=== PATIENT | male | born 1950 | race Two or more races ===

== ENCOUNTER → 2024-01-12 | Outpatient (BNVA) | payer OTHER, MEDICAID, SELFPAY | END | disposition home or self-care (01) | PROVIDERS: PCP Nurse Practitioner Family; Referring Provider Nurse Practitioner Family; Visit Provider Urology | DX: Z76.89 Persons encountering health services in other specified circumstances (principal) | CPT/HCPCS: 81003; 99212; G0463 ==

== ENCOUNTER → 2024-04-11 | Outpatient (CLI) | payer OTHER, MEDICAID, SELFPAY ==
--- NOTE | 2024-04-11 | XR_ITS ---
Examination: Bilateral hands, 6 views. Technique: AP, Oblique, Lateral each hand total 6 views Date and time of exam: April 11, 2024 1342 hours INDICATIONS: Bilateral hand pain one year, history hand surgery one year ago Findings: Moderate osteopenia Bilateral mild osteoarthritis interphalangeal joints and metacarpophalangeal joints No erosive arthritis No fractures Soft tissue vascular calcification IMPRESSION: Osteoarthritis as above
--- NOTE | 2024-04-11 | XR_ITS ---
Exam: elbow bilateral, 6 views Technique: Elbow AP, oblique lateral each elbow total 6 views Exam date and time: April 11, 2024 1342 hours INDICATIONS: Bilateral elbow pain beginning one month ago FINDINGS: No fracture or dislocation involving either elbow Mild bilateral elbow osteoarthritis 4 mm left posterior bony olecranon spur IMPRESSION: Mild bilateral elbow osteoarthritis.
== END | disposition home or self-care (01) ==
LOC: CDIM 12:10
PROVIDERS: PCP Nurse Practitioner Family; Referring Provider Nurse Practitioner Gerontology; Visit Provider Nurse Practitioner Gerontology
DX: M19.022 Primary osteoarthritis, left elbow (principal); M19.021 Primary osteoarthritis, right elbow; M19.042 Primary osteoarthritis, left hand; M19.041 Primary osteoarthritis, right hand
CPT/HCPCS: 73080; 73130

== ENCOUNTER → 2024-05-29 | Outpatient (CLI) | payer OTHER, MEDICAID, SELFPAY ==
[2024-05-29 14:48] LABS: Prostate Specific Antigen 0.27 ng/mL (0-4.00)
== END | disposition home or self-care (01) ==
LOC: COPL 09:27
PROVIDERS: PCP Nurse Practitioner Family; Referring Provider Physician Assistant; Visit Provider Physician Assistant
DX: R97.20 Elevated prostate specific antigen [PSA] (principal)
CPT/HCPCS: 36415; 84153

== ENCOUNTER → 2024-06-24 | Outpatient (CLI) | payer OTHER, MEDICAID, SELFPAY ==
[2024-06-24 10:03] LABS: Collection Type, Urine Clean Catch
[2024-06-24 10:29] LABS: Basophils % (Auto) 1 % (0-2.5); Eosinophils # (Auto) 0.1 Thou/mm3 (0.0-0.5); Eosinophils % (Auto) 2 % (0-10); Hematocrit 42.3 % (41.0-53.0); Hemoglobin 13.9 g/dL (13.5-16.0); Immature Granulocytes % (Auto) 1 % (0-0); Immature Granulocytes Auto 0.02 Thou/mm3 (0.00-0.00); Lymphocytes % (Auto) 24 % (10-50); Mean Corpuscular HGB Conc 32.9 g/dl (31.0-37.0); Mean Corpuscular Hemoglobin 28.9 pg (25.0-35.0); Mean Corpuscular Volume 88 fL (80-100); Monocytes # (Auto) 0.3 Thou/mm3 (0.0-0.8); Monocytes % (Auto) 6 % (0-12); Neutrophils % (Auto) 67 % (37-80); Nucleated Red Blood Cell % 0 /100 WBC (0); Platelet Count 154 Thou/mm3 (140-440); RDW Standard Deviation 41.4 fL (35.1-43.9); Red Blood Count 4.81 Miln/mm3 (4.50-5.90); White Blood Count 4.4 Thou/mm3 (3.8-10.6)
[2024-06-24 10:33] LABS: Bilirubin,Urine Negative (Negative); Blood,Urine Negative (Negative); Clarity,Urine Clear (Clear/Hazy); Color,Urine Lt-Yellow (Lt Yel-Yel); Glucose, Urine Negative (Negative); Ketones,Urine Negative (Negative); Leukocyte Esterase,Urine Negative (Negative); Nitrite,Urine Negative (Negative); Protein,Urine Negative (Neg - Trace); RBC,Urine 2 /hpf (0-3); Specific Gravity,Urine 1.016 (1.001-1.035); Squamous Epithelial Cell,Urine < 1 /hpf (0-5); Urobilinogen,Urine Negative mg/dL (0.0-1.0); WBC,Urine < 1 /hpf (0-5)
[2024-06-24 10:36] LABS: Creatinine MALB Rnd Ur 86 mg/dL (30-125); Microalbumin Creat Ratio 5 mg/gCrea (<30); Microalbumin, Random Urine 4 mg/L (0-300)
[2024-06-24 11:05] LABS: Alanine Aminotransferase 29 U/L (10-49); Albumin, Serum 4.2 gm/dL (3.4-4.8); Albumin/Globulin Ratio 1.8 (1.2-2.2); Alkaline Phosphatase 76 U/L (46-116); Anion Gap 6 (7-16); Aspartate Amino Transferase 31 U/L (0-34); BUN/Creatinine Ratio 16 Ratio (12-20); Bilirubin,Total 0.6 mg/dL (0.3-1.2); Blood Urea Nitrogen 16 mg/dL (9-23); Calcium 9.3 mg/dL (8.3-10.6); Calcium (Corrected) 9.3 mg/dL (8.5-10.1); Cardiac Risk Estimate 2.2 RATIO (4.0-6.7); Chloride 108 mMol/L (98-107); Cholesterol 127 mg/dL (132-200); Free T4 (Free Thyroxine) 0.95 ng/dL (0.89-1.76); Globulin 2.3 gm/dL (2.3-3.5); Glucose 79 mg/dL (74-106); HDL Cholesterol 58 mg/dL (40-60); LDL Cholesterol,Calculated 48 mg/dL (0-130); Osmolality,Calculated 285 (275-295); Potassium 4.8 mMol/L (3.4-5.1); Sodium 143 mMol/L (136-145); Total Protein 6.5 gm/dL (5.7-8.2); Triglycerides 105 mg/dL (30-150); eGFR > 60 See Note
[2024-06-24 11:08] LABS: Vitamin D 25 Hydroxy Total 43.2 ng/mL (7.3-40.2)
[2024-06-24 11:56] LABS: Glucose Estimated Average 212 mg/dL (80-131)
== END | disposition home or self-care (01) ==
LOC: COPL 09:21
DX: E11.65 Type 2 diabetes mellitus with hyperglycemia (principal); E78.2 Mixed hyperlipidemia; I10 Essential (primary) hypertension
CPT/HCPCS: 36415; 80053; 80061; 81001; 82043; 82306; 82570; 83036; 84439; 84443; 85025

== ENCOUNTER → 2024-07-09 | Outpatient (BNVA) | payer OTHER, MEDICAID, SELFPAY | END | disposition home or self-care (01) | PROVIDERS: PCP Nurse Practitioner Family; Referring Provider Nurse Practitioner Family; Visit Provider Urology | DX: C61 Malignant neoplasm of prostate (principal); E11.9 Type 2 diabetes mellitus without complications; I10 Essential (primary) hypertension; E66.9 Obesity, unspecified; Z68.31 Body mass index [BMI] 31.0-31.9, adult; E78.00 Pure hypercholesterolemia, unspecified | CPT/HCPCS: 81003; 99211; 99212; G0463 ==

== ENCOUNTER → 2024-10-02 | Outpatient (CLI) | payer OTHER, MEDICAID, SELFPAY ==
--- NOTE | 2024-10-02 10:27 | XR_ITS ---
Examination: Forearm, right, 2 views. Technique: Forearm, AP, lateral 2 views Date and time of exam: October 02, 2024 1045 hours INDICATIONS: Foreign pain beginning 2 years ago FINDINGS: Moderate narrowing radiocarpal joint Soft tissue vascular calcification Mild diffuse elbow osteoarthritis No fracture IMPRESSION: Osteoarthritis as above
--- NOTE | 2024-10-02 10:27 | XR_ITS ---
Examination: Wrist, right 3 views Technique: Wrist AP, oblique, lateral 3 views Date and time of exam: 06/04/2024 1045 hours INDICATIONS: Right wrist pain beginning 2 years ago. FINDINGS: Moderate osteoarthritis radiocarpal, navicular trapezium, first carpometacarpal joints No fractures Soft tissue vascular calcification IMPRESSION: Osteoarthritis as above
--- NOTE | 2024-10-02 10:27 | XR_ITS ---
Examination: Hand, right 3 views Technique: Hand AP, oblique, lateral 3 views Date and time of exam: October 02, 2024 1045 hours INDICATIONS: Right hand pain beginning 2 years ago FINDINGS: Moderate osteoarthritis radiocarpal, navicular trapezium, first carpometacarpal joints Mild to moderate osteoarthritis distal interphalangeal joints No fractures No erosive arthritis IMPRESSION: Osteoarthritis as above
== END | disposition home or self-care (01) ==
PROVIDERS: Referring Provider Nurse Practitioner Gerontology; Visit Provider Nurse Practitioner Gerontology
DX: M19.021 Primary osteoarthritis, right elbow (principal); M15.1 Heberden's nodes (with arthropathy)
CPT/HCPCS: 73090; 73110; 73130

== ENCOUNTER → 2024-10-28 | Outpatient (CLI) | payer OTHER, MEDICAID, SELFPAY ==
[2024-10-28 10:06] LABS: Collection Type, Urine Clean Catch
[2024-10-28 10:28] LABS: Basophils # (Auto) 0.0 Thou/mm3 (0.0-0.2); Basophils % (Auto) 1 % (0-2.5); Eosinophils # (Auto) 0.1 Thou/mm3 (0.0-0.5); Eosinophils % (Auto) 2 % (0-10); Hematocrit 43.4 % (41.0-53.0); Hemoglobin 14.5 g/dL (13.5-16.0); Immature Granulocytes Auto 0.01 Thou/mm3 (0.00-0.00); Lymphocytes # (Auto) 1.5 Thou/mm3 (1.0-4.8); Lymphocytes % (Auto) 27 % (10-50); Mean Corpuscular HGB Conc 33.4 g/dl (31.0-37.0); Mean Corpuscular Hemoglobin 29.2 pg (25.0-35.0); Mean Corpuscular Volume 87 fL (80-100); Monocytes # (Auto) 0.5 Thou/mm3 (0.0-0.8); Monocytes % (Auto) 9 % (0-12); Neutrophils # (Auto) 3.6 Thou/mm3 (1.8-7.7); Neutrophils % (Auto) 62 % (37-80); Nucleated Red Blood Cell # 0.00 Thou/mm3 (0.00-0.00); Nucleated Red Blood Cell % 0 /100 WBC (0); Platelet Count 188 Thou/mm3 (140-440); RDW Standard Deviation 40.4 fL (35.1-43.9); Red Blood Count 4.97 Miln/mm3 (4.50-5.90); White Blood Count 5.8 Thou/mm3 (3.8-10.6)
[2024-10-28 10:30] LABS: Bilirubin,Urine Negative (Negative); Blood,Urine Negative (Negative); Clarity,Urine Clear (Clear/Hazy); Color,Urine Yellow (Lt Yel-Yel); Glucose, Urine Negative (Negative); Ketones,Urine Negative (Negative); Leukocyte Esterase,Urine Negative (Negative); Nitrite,Urine Negative (Negative); PH,Urine 6.0 (5.0-7.0); Protein,Urine Negative (Neg - Trace); RBC,Urine 5 /hpf (0-3); Specific Gravity,Urine 1.024 (1.001-1.035); Squamous Epithelial Cell,Urine < 1 /hpf (0-5); Urobilinogen,Urine Negative mg/dL (0.0-1.0); WBC,Urine 1 /hpf (0-5)
[2024-10-28 10:51] LABS: Alanine Aminotransferase 33 U/L (10-49); Albumin, Serum 4.6 gm/dL (3.4-4.8); Albumin/Globulin Ratio 1.6 (1.2-2.2); Alkaline Phosphatase 93 U/L (46-116); Anion Gap 9 (7-16); Aspartate Amino Transferase 30 U/L (0-34); BUN/Creatinine Ratio 18 Ratio (12-20); Bilirubin,Total 0.9 mg/dL (0.3-1.2); Blood Urea Nitrogen 20 mg/dL (9-23); Calcium 9.7 mg/dL (8.3-10.6); Calcium (Corrected) 9.7 mg/dL (8.5-10.1); Carbon Dioxide 30.0 mMol/L (20.0-31.0); Cardiac Risk Estimate 2.2 RATIO (4.0-6.7); Chloride 106 mMol/L (98-107); Cholesterol 117 mg/dL (132-200); Creatinine (Component) 1.1 mg/dL (0.6-1.3); Free T4 (Free Thyroxine) 1.16 ng/dL (0.89-1.76); Globulin 2.8 gm/dL (2.3-3.5); Glucose 77 mg/dL (74-106); HDL Cholesterol 54 mg/dL (40-60); LDL Cholesterol,Calculated 50 mg/dL (0-130); Osmolality,Calculated 290 (275-295); Potassium 4.3 mMol/L (3.4-5.1); Sodium 145 mMol/L (136-145); Thyroid Stimulating Hormone 2.89 uIU/mL (0.55-4.78); Total Protein 7.4 gm/dL (5.7-8.2); Triglycerides 65 mg/dL (30-150); eGFR > 60 See Note
[2024-10-28 10:53] LABS: Creatinine MALB Rnd Ur 130 mg/dL (30-125); Microalbumin Creat Ratio 2 mg/gCrea (<30); Microalbumin, Random Urine 3 mg/L (0-300)
[2024-10-28 11:17] LABS: Glucose Estimated Average 212 mg/dL (80-131); Hemoglobin A1C 9.0 % Hgb (4.8-6.0)
== END | disposition home or self-care (01) ==
DX: E11.65 Type 2 diabetes mellitus with hyperglycemia (principal); I10 Essential (primary) hypertension; E78.2 Mixed hyperlipidemia
CPT/HCPCS: 36415; 80053; 80061; 81001; 82043; 82570; 83036; 84439; 84443; 85025

== ENCOUNTER → 2024-10-31 | Outpatient (CLI) | payer OTHER, MEDICAID, SELFPAY ==
[2024-10-31 14:39] LABS: Urea Breath Test Negative (Negative)
== END | disposition home or self-care (01) ==
LOC: COPL 13:18
DX: R63.0 Anorexia (principal)
CPT/HCPCS: 83013; 83014

== ENCOUNTER → 2024-11-01 | Outpatient (CLI) | payer OTHER, MEDICAID, SELFPAY ==
[2024-11-06 23:35] LABS: Source STOOL
== END | disposition home or self-care (01) ==
LOC: SLDO 16:52
DX: R63.0 Anorexia (principal)
CPT/HCPCS: 87015; 87045; 87046; 87177; 87209; 87899

== ENCOUNTER 2024-11-02 12:16 | Emergency (ER) | payer OTHER, MEDICAID, SELFPAY ==
[2024-11-02 12:34] VITALS: BP 122/67; PULSE 66; RESP 19; TEMP 36.7; O2SAT 95; BMI 28.9
--- NOTE | 2024-11-02 12:56 | XR_ITS ---
Examination: CT abdomen and pelvis without contrast. Coronal 3-D reconstructions. Sagittal 2-D reconstructions. Date and time of exam:November 02, 2024, 1305 hrs. Comparison 12/29/2022 Indications: Generalized abdominal pain and vomiting today CTDI: vol (mGy): 7.12 DLP: (mGycm): 367 Technique: Axial images of the abdomen have been obtained, 3 mm slice thickness Intravenous contrast material has not been administered. Low dose protocols were performed. One or more of the following dose reduction techniques were used; automated exposure control, adjustment of the mA and/or KV according to patient size, use of iterative reconstruction technique. Findings: Cirrhosis, liver nodular in contour, no focal liver lesions No gallstones Spleen is not enlarged No pancreatic or adrenal mass No hydronephrosis or ureteral calculi Aorta normal size Appendix is mildly thickened but no inflammatory change Colonic diverticulosis Mild thickening of urinary bladder No significant prostatomegaly Advanced degenerative disc disease L5-S1 Impression: Cirrhosis, no focal liver lesions Negative for pancreatitis No biliary tract dilatation Negative for pancreatitis. No bowel obstruction or diverticulitis
--- NOTE | 2024-11-02 12:56 | XR_ITS ---
Examination: Abdomen sonogram, Limited Date and time of exam: November 02, 2024 at 1346 hrs. Indications: Nausea vomiting beginning 5 days ago Technique: Real-time tom scale transabdominal sonographic images of the upper abdomen obtained. Findings: Normal gallbladder. Normal common bile duct 0.4 cm Pancreatic head 2.5 cm Liver 12.0 cm irregular contour fatty infiltration. Normal hepatopedal portal venous flow Patent IVC Impression: Normal gallbladder Suspect primary hepatocellular disease
--- NOTE | 2024-11-02 12:56 | EKG_ITS ---
[facility] Test Date: 2024-11-02 Pat Name: ANDIE PIKE Department: Room: - Gender: Male Station Cashier: : 1950 Requested By: Antolin Desir (ANGÉLICA) Order Number: [id number] Reading MD: Antolin Desir ([employer]PER[employer]) Measurements Intervals Hyder Rate: 68 P: 39 MI: 151 QRS: 86 QRSD: 83 T: 38 QT: 394 QTc: 421 Interpretive Statements SINUS RHYTHM Compared to ECG 12/12/2022 14:07:50 No significant changes /store/S0/[id number].pdf
--- NOTE | 2024-11-02 12:56 | PD.EDRME ---
Rapid Medical Screening Exam RME Arrival date/time: 11/02/24 12:16 74-year-old male who presents to the Emergency Department today for complaint of abdominal pain nausea vomiting Chief Complaint: Abdominal Pain Vital signs: Vital Signs Temperature 98.0 F 11/02/24 12:34 Pulse Rate 66 11/02/24 12:34 Respiratory Rate 19 11/02/24 12:34 Blood Pressure 122/67 11/02/24 12:34 Pulse Oximetry (%) 95 11/02/24 12:34 Oxygen Delivery Method Room Air 11/02/24 12:34
[2024-11-02 13:49] LABS: Basophils # (Auto) 0.0 Thou/mm3 (0.0-0.2); Basophils % (Auto) 0 % (0-2.5); Eosinophils # (Auto) 0.1 Thou/mm3 (0.0-0.5); Eosinophils % (Auto) 1 % (0-10); Hematocrit 44.7 % (41.0-53.0); Hemoglobin 15.1 g/dL (13.5-16.0); Immature Granulocytes Auto 0.01 Thou/mm3 (0.00-0.00); Lymphocytes # (Auto) 2.1 Thou/mm3 (1.0-4.8); Lymphocytes % (Auto) 28 % (10-50); Mean Corpuscular HGB Conc 33.8 g/dl (31.0-37.0); Mean Corpuscular Hemoglobin 29.4 pg (25.0-35.0); Mean Corpuscular Volume 87 fL (80-100); Monocytes # (Auto) 0.4 Thou/mm3 (0.0-0.8); Monocytes % (Auto) 6 % (0-12); Neutrophils # (Auto) 4.9 Thou/mm3 (1.8-7.7); Neutrophils % (Auto) 64 % (37-80); Nucleated Red Blood Cell # 0.00 Thou/mm3 (0.00-0.00); Nucleated Red Blood Cell % 0 /100 WBC (0); Platelet Count 209 Thou/mm3 (140-440); RDW Standard Deviation 40.5 fL (35.1-43.9); Red Blood Count 5.14 Miln/mm3 (4.50-5.90); White Blood Count 7.6 Thou/mm3 (3.8-10.6)
[2024-11-02 14:07] VITALS: BP 129/69; PULSE 72; RESP 17; TEMP 36.4; O2SAT 97
[2024-11-02 14:14] LABS: Collection Type, Urine Clean Catch
[2024-11-02 14:17] LABS: Alanine Aminotransferase 32 U/L (10-49); Albumin, Serum 4.7 gm/dL (3.4-4.8); Albumin/Globulin Ratio 1.6 (1.2-2.2); Alkaline Phosphatase 76 U/L (46-116); Anion Gap 8 (7-16); Aspartate Amino Transferase 34 U/L (0-34); BUN/Creatinine Ratio 16 Ratio (12-20); Bilirubin,Total 1.3 mg/dL (0.3-1.2); Blood Urea Nitrogen 18 mg/dL (9-23); Calcium 9.8 mg/dL (8.3-10.6); Calcium (Corrected) 9.8 mg/dL (8.5-10.1); Carbon Dioxide 27.7 mMol/L (20.0-31.0); Chloride 106 mMol/L (98-107); Creatinine (Component) 1.1 mg/dL (0.6-1.3); Estimated Creatinine Clearance 48.5 mL/min (>60); Globulin 3.0 gm/dL (2.3-3.5); Glucose 90 mg/dL (74-106); Lipase 38 U/L (12-53); Osmolality,Calculated 285 (275-295); Potassium 4.0 mMol/L (3.4-5.1); Sodium 142 mMol/L (136-145); Total Protein 7.7 gm/dL (5.7-8.2); Troponin I < 0.020 ng/mL (0.0-0.045); eGFR > 60 See Note
--- NOTE | 2024-11-02 14:18 | PD.EDNV ---
Nausea/Vomit./Diarrhea-RME/HPI General Chief complaint: Abdominal Pain Stated complaint: UPPER ABD PAIN X 5 DAYS, VOMITING Time Seen by Provider: 11/02/24 14:11 Arrival date/time: 11/02/24 12:16 RME / HPI RME / HPI Narrative: 74-year-old male who presents to the Emergency Department today for complaint of abdominal pain nausea vomiting, has been ongoing for the last 5 days described as burning-like sensation, severity moderate. Denies any fever denies any vomiting denies any other complaints no medications taken prior to arrival. Related Data Home Medications ?Medication ?Instructions ?Recorded ?Confirmed metformin 1,000 mg tablet 1,000 mg PO QDAY 04/30/20 07/09/24 tamsulosin 0.4 mg capsule 0.4 mg PO QHS 01/25/22 07/09/24 hydrochlorothiazide 12.5 mg tablet 12.5 mg PO QDAY 12/30/22 07/09/24 sertraline 50 mg tablet 50 mg PO QDAY 12/30/22 07/09/24 insulin glargine 100 unit/mL (3 35 unit subcut QAM 07/10/23 07/09/24 mL) subcutaneous pen (Lantus Solostar U-100 Insulin) semaglutide 14 mg tablet (Rybelsus) 14 mg PO QDAY 07/10/23 07/09/24 Previous Rx's ?Medication ?Instructions ?Recorded aspirin 81 mg capsule 81 mg PO QDAY 30 days #30 caps 12/31/22 atorvastatin 40 mg tablet 40 mg PO QDAY 30 days #30 tabs 12/31/22 ondansetron HCl 4 mg tablet 4 mg PO Q8H PRN nausea and 11/02/24 vomiting 5 days #20 tabs pantoprazole 40 mg tablet,delayed 40 mg PO QDAY #30 tabs 11/02/24 release (Protonix) Allergies Allergy/AdvReac Type Severity Reaction Status Date / Time Penicillins Allergy Mild RASH Verified 11/02/24 12:20 Review of Systems Review of Systems Narrative Review of Systems: Review of system reviewed and within normal limits except mentioned in HPI ED Exam Narrative Physical exam: VITAL SIGNS: Reviewed. GENERAL APPEARANCE: Alert and interactive, follows commands, no acute distress, HEAD AND FACE: Non-traumatic. ENT: PERRL, pink conjunctivitis, eyelid no trauma, Mucous membrane moist. NECK: Supple, nontender, no nuchal rigidity. CHEST: No tenderness, no crepitus, no paradoxical movement, no retractions. LUNGS: Clear, well ventilated, symmetric, no rales, no wheezing, no ronchi, no stridor, good breath sounds bilaterally. HEART: Regular rate, regular rhythm, no murmur, no gallops. ABDOMEN: Soft, positive bowel sounds, nondistended, no guarding, epigastric tenderness, no rebound, no masses, RECTAL: Deferred. GENITAL: Deferred. NEUROLOGICAL: Gross motor function intact sensory function intact, Appropriate for age. MUSCULOSKELETAL: low back nontender, full range of motion. EXTREMITIES: Nontender, full range of motion. SKIN: Color pink, dry, no rash, no lacerations, no abrasions, no contusions. LYMPHATICS: Deferred. Course Quality Measures none Orders Category Date Time Status EKG (ED ONLY) *Do not use* NOW Care 11/02/24 12:[address] abdomen pelvis wo con Stat Exams 11/02/24 12:56 Completed EKG (ED Only) Stat Exams 11/02/24 12:56 Draft US gall bladder Stat Exams 11/02/24 12:56 Completed CBC Stat Lab 11/02/24 13:18 Completed Comprehensive Metabolic Panel Stat Lab 11/02/24 13:18 Completed Lipase Stat Lab 11/02/24 13:18 Completed Troponin I Stat Lab 11/02/24 13:18 Completed UA, C/S IF [Urinalysis, C/S if Indicated] Stat Lab 11/02/24 13:20 Completed Ondansetron Odt [Zofran Odt] Med 11/02/24 14:19 Discontinued 4 mg PO X1 ONE mg Hyd/Al Hyd/Vidal Susp [Maalox Susp] Med 11/02/24 14:19 Discontinued 30 ml PO X1 ONE Vital Signs Vital signs: Vital Signs Temperature 98.0 F 11/02/24 12:34 Pulse Rate 66 11/02/24 12:34 Respiratory Rate 19 11/02/24 12:34 Blood Pressure 122/67 11/02/24 12:34 Pulse Oximetry (%) 95 11/02/24 12:34 Oxygen Delivery Method Room Air 11/02/24 12:34 Nausea/Vomiting/Diarrhea MDM Narrative MDM Narrative:: 74-year-old male who presents to the Emergency Department today for complaint of abdominal pain nausea vomiting, has been ongoing for the last 5 days described as burning-like sensation, severity moderate. Denies any fever denies any vomiting denies any other complaints no medications taken prior to arrival. \ EKG shows sinus rhythm, ventricular rate of 68 bpm, CA interval 151 MS, no ST segment elevation depression noted. CT scan of the abdomen came back unremarkable. Ultrasound of the gallbladder came back unremarkable laboratory workup all came back normal including normal troponin. Results discussed with the family Patient appears nontoxic and hemodynamically stable .Decision to discharge the patient. The patient/family was given an opportunity to ask questions and understood their discharge instructions. Discharge instructions specifically included follow up provider and time frame, current and/or new medications and possible side effects, indications for sooner follow up or return to the emergency department, and the expected course of current diagnosis. Patient reports feeling better as well and giving evidence of significant clinical improvement, I believe patient is now a candidate for discharge. Patient data External records reviewed:: None Clinical information provided by:: patient and family Social determinants that could affect healthcare access:: none Patient has the following chronic illnesses:: None How is presenting disease/condition affected by chronic disease/condition?: no chronic disease Evaluation data The following diagnostics were reviewed and interpreted by me:: lab results and radiology exam(s) Lab and/or radiology exams considered but not ordered:: None Interpretation Summary: See results MDM Medications / Prescriptions Medications / Prescriptions considered but not ordered:: None Medication administrations:: Medication Administration History Discontinued Medications Al Hydrox/Mg Hydrox/Simethicone (Mg Hyd/Al Hyd/Vidal (Maalox Reg) Susp 30 Ml Udc) 30 ml PO X1 ONE Stop: 11/02/24 14:20 Last Admin: 11/02/24 14:28 Dose: 30 ml Documented By: ANGIE Ondansetron HCl (Ondansetron Odt 4 Mg Tabrap) 4 mg PO X1 ONE; Protocol Stop: 11/02/24 14:20 Last Admin: 11/02/24 14:28 Dose: 4 mg Documented By: ANGIE Antoinex and Zofran Consultations Consultation(s) initiated? (list below): No Diagnosis Nausea Differential Diagnosis: other (Epigastric pain, gastritis, gallstone) Most likely diagnosis given after review of the tests above:: Gastritis Admission Indicated Admission indicated?: not indicated Admission Request Was there a request for admission?: No Disposition Plan Disposition Plan: Discharge Discharge Attestation Discharge Attestation: The patient and all family members were given an opportunity to ask questions and understood the discharge instructions. Discharge instructions specifically effects, indications for sooner follow up or return to the emergency department, and the expected course of current diagnosis. Patient condition: Stable Discharge Plan Plan Patient Disposition: HOME (Self Care) Discharge Disposition comment: Stable Prescriptions/Referrals Prescriptions/Med Rec: New pantoprazole [Protonix] 40 mg tablet,delayed release (DR/EC) 40 mg PO QDAY Qty: 30 0RF ondansetron HCl 4 mg tablet 4 mg PO Q8H PRN (Reason: nausea and vomiting) 5 Days Qty: 20 0RF No Action metformin 1,000 mg tablet 1,000 mg PO QDAY tamsulosin 0.4 mg capsule 0.4 mg PO QHS insulin glargine [Lantus Solostar U-100 Insulin] 100 unit/mL (3 mL) insulin pen 35 unit subcut QAM Rybelsus 14 mg tablet 14 mg PO QDAY sertraline 50 mg tablet 50 mg PO QDAY hydrochlorothiazide 12.5 mg tablet 12.5 mg PO QDAY aspirin 81 mg capsule 81 mg PO QDAY 30 Days Qty: 30 2RF atorvastatin 40 mg tablet 40 mg PO QDAY 30 Days Qty: 30 2RF Referrals: Tennille Yu FNP-C [Primary Care Provider] - In 1 week Problem List Clinical Impression: Gastritis Patient/Caregiver Discharge Instructions Discharge Activity: activity as tolerated Education Materials: ED Gastritis (Adult) Additional Instructions: Thank you for the opportunity for serving you today. You are stable for discharged . You are advised to: Follow-up with your PCP in 1 to 2 days Return to ED for worsening of symptoms Increase oral fluids Take medication as prescribed Please avoid drinking coffee, soda, alcohol, eating for hot and spicy food Print Language: Luxembourgish Stand Alone Forms: Sonal Award Info., Patient Portal Info Letter RICKEY/RODOLFO Supervising Physician RICKEY/RODOLFO Supervising Physician: MD Jos
[2024-11-02] MEDS: MG HYD/AL HYD/SIME (Maalox Reg) SUSP 30 ML UDC PO (14:28)
[2024-11-02] MEDS: ONDANSETRON ODT 4 MG TABRAP PO (14:28)
[2024-11-02 14:43] LABS: Bilirubin,Urine Negative (Negative); Blood,Urine Negative (Negative); Clarity,Urine Clear (Clear/Hazy); Color,Urine Yellow (Lt Yel-Yel); Culture Indicated,Urine Not Indicated; Glucose, Urine Negative (Negative); Hyaline Casts,Urine < 1 /hpf (0-1); Ketones,Urine Negative (Negative); Leukocyte Esterase,Urine Negative (Negative); Nitrite,Urine Negative (Negative); PH,Urine 6.0 (5.0-7.0); Protein,Urine Trace (Neg - Trace); RBC,Urine 3 /hpf (0-3); Specific Gravity,Urine 1.034 (1.001-1.035); Squamous Epithelial Cell,Urine < 1 /hpf (0-5); Urobilinogen,Urine 2.0 mg/dL (0.0-1.0); WBC,Urine 1 /hpf (0-5)
[2024-11-02 16:19] VITALS: BP 122/67; PULSE 61; RESP 17; TEMP 36.6; O2SAT 97
== END 2024-11-02 16:24 | disposition home or self-care (01) ==
PROVIDERS: Nurse Practitioner Primary Care; Emergency Provider Family Medicine
DX: K29.70 Gastritis, unspecified, without bleeding (principal); R10.10 Upper abdominal pain, unspecified
CPT/HCPCS: 36415; 74176; 76705; 80053; 81001; 83690; 84484; 85025; 93005; 99283; Q0162; A9270

== ENCOUNTER → 2025-01-06 | Outpatient (CLI) | payer OTHER, MEDICAID, SELFPAY ==
[2025-01-06 10:21] LABS: Prostate Specific Antigen 0.32 ng/mL (0-4.00)
== END | disposition home or self-care (01) ==
PROVIDERS: Referring Provider Urology; Visit Provider Urology
DX: C61 Malignant neoplasm of prostate (principal)
CPT/HCPCS: 36415; 84153

== ENCOUNTER → 2025-01-07 | Outpatient (BNVA) | payer OTHER, MEDICAID, SELFPAY | END | disposition home or self-care (01) | PROVIDERS: PCP Nurse Practitioner Family; Referring Provider Nurse Practitioner Family; Visit Provider Urology | DX: C61 Malignant neoplasm of prostate (principal); E11.9 Type 2 diabetes mellitus without complications; I10 Essential (primary) hypertension; E66.9 Obesity, unspecified; Z68.28 Body mass index [BMI] 28.0-28.9, adult; Z86.73 Personal history of transient ischemic attack (TIA), and cerebral infarction without residual deficits | CPT/HCPCS: 81003; 99212; 99213; G0463 ==